=== PATIENT | male | born 1995 | race Two or more races ===

== ENCOUNTER 2018-12-02 04:06 | Emergency (ER) | payer SELFPAY ==
[~2018-12-02] VITALS: Ht 177.8 cm; Wt 68.0 kg
[2018-12-02 07:22] VITALS: BP 117/69
[2018-12-02] MEDS ORDERED: IPRATROPIUM BROM 0.5 MG/2.5ML INH SOL NEB ONE (07:30)
[2018-12-02] MEDS ORDERED: ALBUTEROL SULF 2.5 MG/0.5ML(0.5%) NEB SOLN NEB ONE (07:30)
== END 2018-12-02 07:58 | disposition home or self-care (01) ==
LOC: ER 04:08
DX: J20.9 Acute bronchitis, unspecified (principal)
CPT/HCPCS: 71045; 94640; 99283; J7611; J7644

== ENCOUNTER 2020-08-27 12:02 | Emergency (ER) | payer MEDICAID ==
[~2020-08-27] VITALS: Ht 177.8 cm; Wt 74.8 kg
[2020-08-27] VITALS (8 sets, daily range): BP systolic 105–124; BP diastolic 51–71
[2020-08-27 13:38] LABS: Hematocrit 15.3 % (41.0-53.0); Mean Corpuscular Hemoglobin 30.2 pg (28.0-32.0); Mean Corpuscular Hgb Conc. 33.6 g/dL (32.0-36.0); Mean Corpuscular Volume 89.7 fL (80.0-100.0); Red Cell Distribution Width 15.3 % (11.8-14.3)
[2020-08-27 13:44] LABS: Hemoglobin 5.1 g/dL (13.5-17.5); White Blood Cell 53.8 10^3/uL (4.4-10.8)
[2020-08-27 13:46] LABS: Band Neutrophils % (manual) 0; Basophils % (manual) 0 (0.0-2.0); Eosinophils % (manual) 0 (0-7); Metamyelocytes % 0; Monocytes % (manual) 0 (0-12); Myelocytes % 0; Promyelocytes % 0; Reactive Lymphocytes 0
[2020-08-27 13:48] LABS: Chloride 109 mmol/L (98-107); Sodium 140 mmol/L (136-145)
[2020-08-27 13:57] LABS: Alanine Aminotransferase 127 U/L (16-61); Albumin 3.9 g/dL (3.4-5.0); Alkaline Phosphatase 99 U/L (45-117); Anion Gap 7 (5-15); Aspartate Aminotransferase 63 U/L (15-37); BUN/Creatinine Ratio 19.4; Bilirubin, Total 0.3 mg/dL (0.2-1.0); Blood Urea Nitrogen 19 mg/dL (7-18); Calcium 8.5 mg/dL (8.5-10.1); Carbon Dioxide 24 mmol/L (21-32); GFR African American 121 mL/min; GFR Non-African American 100 mL/min; Glucose 97 mg/dL (74-106); Total Protein 6.6 g/dL (6.4-8.2)
[2020-08-27] MEDS ORDERED: SODIUM CHLORIDE 0.9% 1,000 ML IVB ONE (14:15)
[2020-08-27 14:38] LABS: Blast Cells 74; Lymphocytes % (manual) 20 (10.0-50.0)
[2020-08-27 15:26] LABS: INR 1.04 (0.9-1.15); Partial Thromboplastin Time 24.8 sec (23.0-31.2)
[2020-08-27 15:27] LABS: Urine Bacteria NONE SEEN /hpf (None Seen); Urine Blood Negative /uL (Negative); Urine Hyaline Cast FEW /lpf (0 - 2); Urine Mucus FEW (None Seen); Urine Specific Gravity 1.024 (1.001-1.035); Urine WBC 1 /hpf (0 - 3)
[2020-08-27] MEDS ORDERED: SODIUM CHLORIDE 0.9% 1,000 ML IV ONE (15:45)
== END 2020-08-27 21:03 | disposition home or self-care (01) ==
LOC: EDBD 12:02 → ER 12:02
DX: C91.00 Acute lymphoblastic leukemia not having achieved remission (principal); D64.9 Anemia, unspecified; D69.6 Thrombocytopenia, unspecified; R53.83 Other fatigue; Z20.822 Contact with and (suspected) exposure to COVID-19
CPT/HCPCS: 36415; 36430; 71046; 80053; 81001; 83605; 83735; 84484; 85007; 85027; 85610; 85730; 86850; 86900; 86901; 86920; 87040; 87426; 93005; 96360; 96361; 99291; J7030; P9016; 85060